=== PATIENT | male | born 1995 | race Caucasian/White ===

== ENCOUNTER 2021-01-18 16:52 | Emergency (ER) | payer MEDICAID, OTHER ==
[~2021-01-18] VITALS: Ht 182.9 cm; Wt 130.2 kg
[2021-01-18 18:53] VITALS: BP 128/89
[2021-01-18] MEDS ORDERED: KETOROLAC TROMETH 60MG/2ML VIAL IM ONE (19:45)
[2021-01-18] MEDS ORDERED: methylPREDNISolone SOD SUCC 125 MG/2 ML VL IM ONE (19:45)
== END 2021-01-18 21:16 | disposition home or self-care (01) ==
LOC: ER 16:52
DX: M25.511 Pain in right shoulder (principal); L73.9 Follicular disorder, unspecified; G62.9 Polyneuropathy, unspecified
CPT/HCPCS: 96372; 99284; J1885; J2930

== ENCOUNTER 2021-06-29 08:57 | Inpatient (IN) | payer MEDICAID ==
[~2021-06-29] VITALS: Ht 188 cm; Wt 132.0 kg
[2021-06-29 09:57] LABS: Urine Bacteria NONE SEEN /hpf (None Seen); Urine Blood Negative /uL (Negative); Urine Specific Gravity 1.019 (1.001-1.035); Urine WBC 1 /hpf (0 - 3)
[2021-06-29 10:44] LABS: Basophils # (auto) 0 10 ^3/uL (0-0.2); Basophils % (auto) 0.4 % (0.0-2.0); Eosinophils # (auto) 0.2 10 ^3/uL (0-0.8); Eosinophils % (auto) 1.4 % (0.0-7.0); Hematocrit 45.4 % (41.0-53.0); Lymphocytes # (auto) 0.8 10 ^3/uL (0.4-5.4); Lymphocytes % (auto) 6.5 % (10.0-50.0); Mean Corpuscular Hemoglobin 29.8 pg (28.0-32.0); Mean Corpuscular Hgb Conc. 35.2 g/dL (32.0-36.0); Mean Corpuscular Volume 84.9 fL (80.0-100.0); Monocytes # (auto) 0.7 10 ^3/uL (0-1.3); Neutrophils # (auto) 10.5 10 ^3/uL (1.6-8.6); Neutrophils % (auto) 85.7 % (37.0-80.0); Red Blood Cells 5.35 10^6/uL (4.5-5.90); Red Cell Distribution Width 13.3 % (11.8-14.3); White Blood Cell 12.2 10^3/uL (4.4-10.8)
[2021-06-29 10:56] LABS: Albumin 4.3 g/dL (3.4-5.0); Calcium 9.4 mg/dL (8.5-10.1); Potassium 4.2 mmol/L (3.5-5.1)
[2021-06-29 11:00] LABS: BUN/Creatinine Ratio 9.8; Bilirubin, Total 2.1 mg/dL (0.2-1.0)
[2021-06-29] MEDS ORDERED: cefTRIAXone 1GM/50ML D5W 50 ML IV ONE (12:30)
[2021-06-29] MEDS ORDERED: SODIUM CHLORIDE 0.9% 1,000 ML IV ONE ×2 (12:30)
[2021-06-29] MEDS ORDERED: cefTRIAXone W LIDOCAINE 1 GM IM IM ONE (12:30)
[2021-06-29] MEDS ORDERED: TAMSULOSIN HYDROCHLORIDE 0.4 MG CAP PO ONE (13:15)
[2021-06-29] MEDS ORDERED: FUROSEMIDE 20 MG/2 ML VIAL IV ONE (13:15)
[2021-06-29] MEDS ORDERED: KETOROLAC TROMETH 30 MG/ML 1ML VIAL IV ONE (13:15)
[2021-06-29] MEDS ORDERED: MORPHINE SULFATE INJECTION 2 MG/ML SYRG IV PRN (14:30)
[2021-06-29] MEDS ORDERED: MORPHINE SULFATE 4 MG/ML SYR/VIAL IV PRN (14:30)
[2021-06-29] MEDS ORDERED: NITROGLYCERIN 0.4 MG SL TAB SL PRN (14:30)
[2021-06-29] MEDS ORDERED: ACETAMINOPHEN 325 MG TAB PO PRN (14:30)
[2021-06-29] MEDS ORDERED: HYDROcodone-ACET 5/325MG TAB PO PRN (14:30)
[2021-06-29] MEDS ORDERED: ONDANSETRON HCL 4 MG/2 ML VIAL IV PRN (14:30)
[2021-06-29] MEDS: SODIUM CHLORIDE 0.9% 1,000 ML IV SCH ×2 (17:23→22:50)
[2021-06-29] MEDS ORDERED: ALBUTEROL SULF 2.5 MG/0.5ML(0.5%) NEB SOLN NEB SCH (18:00)
[2021-06-29] MEDS ORDERED: TAMSULOSIN HYDROCHLORIDE 0.4 MG CAP PO SCH (18:00)
[2021-06-29] MEDS ORDERED: ALBUTEROL SULF 2.5 MG/0.5ML(0.5%) NEB SOLN NEB PRN (19:45)
[2021-06-29 22:00] VITALS: BP 121/74
[2021-06-29] MEDS: methylPREDNISolone SOD SUCC 40 MG/ML VL IV SCH (22:49)
[2021-06-30 05:00] VITALS: BP 131/78
[2021-06-30] MEDS: methylPREDNISolone SOD SUCC 40 MG/ML VL IV SCH ×2 (06:28→14:36)
[2021-06-30] MEDS: SODIUM CHLORIDE 0.9% 1,000 ML IV SCH ×2 (07:10→15:30)
[2021-06-30 08:00] VITALS: BP 111/54
[2021-06-30 09:00] VITALS: BP 111/24
[2021-06-30] MEDS ORDERED: cefTRIAXone 1GM/50ML D5W 50 ML IV SCH (09:00)
[2021-06-30] MEDS ORDERED: ENOXAPARIN SOD 40 MG/0.4 ML SYRINGE SC SCH (10:00)
[2021-06-30 10:35] LABS: Hematocrit 42.3 % (41.0-53.0); Hemoglobin 14.6 g/dL (13.5-17.5); Mean Corpuscular Hemoglobin 29.7 pg (28.0-32.0); Mean Corpuscular Hgb Conc. 34.6 g/dL (32.0-36.0); Mean Corpuscular Volume 85.9 fL (80.0-100.0); Red Blood Cells 4.93 10^6/uL (4.5-5.90); Red Cell Distribution Width 13.5 % (11.8-14.3); White Blood Cell 10.2 10^3/uL (4.4-10.8)
[2021-06-30 10:46] LABS: Basophils % (manual) 0 (0.0-2.0); Blast Cells 0; Eosinophils % (manual) 0 (0-7); Metamyelocytes % 0; Myelocytes % 0; Promyelocytes % 0; Reactive Lymphocytes 0
[2021-06-30 10:54] LABS: Albumin 3.7 g/dL (3.4-5.0); Potassium 4.1 mmol/L (3.5-5.1)
[2021-06-30 10:59] LABS: BUN/Creatinine Ratio 13.5; Bilirubin, Total 3.4 mg/dL (0.2-1.0)
[2021-06-30 11:50] LABS: Band Neutrophils % (manual) 3; Lymphocytes % (manual) 3 (10.0-50.0); Monocytes % (manual) 1 (0-12)
== END 2021-06-30 15:40 | disposition home or self-care (01) | DRG 465 ==
LOC: ER 08:57 → OVERFLOW 14:19 → WEST WING 18:26
PROVIDERS: ADMIT Internal Medicine; ATTEND Internal Medicine
DX: N13.2 Hydronephrosis with renal and ureteral calculous obstruction (principal); N17.0 Acute kidney failure with tubular necrosis; E86.0 Dehydration; J45.901 Unspecified asthma with (acute) exacerbation; D72.829 Elevated white blood cell count, unspecified; Z20.822 Contact with and (suspected) exposure to COVID-19; E66.01 Morbid (severe) obesity due to excess calories; Z68.37 Body mass index [BMI] 37.0-37.9, adult; Z87.442 Personal history of urinary calculi
CPT/HCPCS: 36415; 74176; 80053; 81001; 83605; 85007; 85025; 85027; 87040; 87426; 96361; 96365; 96375; G0378; J0696; J1885

== ENCOUNTER 2022-01-29 11:37 | Emergency (ER) | payer MEDICAID ==
[2022-01-29 12:25] VITALS: BP 115/76
[2022-01-29 13:33] LABS: Basophils # (auto) 0 10 ^3/uL (0-0.2); Basophils % (auto) 0.3 % (0.0-2.0); Eosinophils # (auto) 0.3 10 ^3/uL (0-0.8); Eosinophils % (auto) 2.4 % (0.0-7.0); Hematocrit 47.4 % (41.0-53.0); Lymphocytes # (auto) 1.2 10 ^3/uL (0.4-5.4); Lymphocytes % (auto) 11.7 % (10.0-50.0); Mean Corpuscular Hemoglobin 28.3 pg (28.0-32.0); Mean Corpuscular Hgb Conc. 33.6 g/dL (32.0-36.0); Mean Corpuscular Volume 84.2 fL (80.0-100.0); Monocytes # (auto) 0.5 10 ^3/uL (0-1.3); Monocytes % (auto) 4.9 % (0.0-12.0); Neutrophils # (auto) 8.3 10 ^3/uL (1.6-8.6); Neutrophils % (auto) 80.7 % (37.0-80.0); Red Blood Cells 5.63 10^6/uL (4.5-5.90); Red Cell Distribution Width 13.7 % (11.8-14.3); White Blood Cell 10.3 10^3/uL (4.4-10.8)
[2022-01-29 13:46] LABS: Albumin 4.2 g/dL (3.4-5.0); Calcium 9.5 mg/dL (8.5-10.1); Potassium 3.9 mmol/L (3.5-5.1)
[2022-01-29 13:51] LABS: BUN/Creatinine Ratio 10.9; Bilirubin, Total 2.3 mg/dL (0.2-1.0); Total Protein 8.2 g/dL (6.4-8.2)
[2022-01-29] MEDS ORDERED: ONDA-144 PO (14:00)
[2022-01-29 14:05] LABS: INR 0.94 (0.9-1.15); Partial Thromboplastin Time 26.3 sec (24.6-33.4)
== END 2022-01-29 15:59 | disposition home or self-care (01) ==
LOC: ER 11:37
DX: R07.89 Other chest pain (principal); R11.10 Vomiting, unspecified
CPT/HCPCS: 36415; 71046; 80053; 85025; 85610; 85730